=== PATIENT | male | born 1995 | race African-American/Black ===

== ENCOUNTER 2016-12-01 21:15 | Emergency (ER) | payer MEDICAID ==
[~2016-12-01] VITALS: Ht 180.3 cm; Wt 84.9 kg
[~2016-12-01 21:15] MED LIST: ARIP5TAB6 PO; DOCU-30 PO; FLUO20CA8 PO; LITHIUM PO; ZIPR20VI IM
[2016-12-01 22:22] LABS: DAU SCREEN DISCLAIMER
[2016-12-01 22:47] LABS: ASPARTATE AMINO TRANSFERASE 21 U/L (15-37); BLOOD UREA NITROGEN 10 mg/dL (7-18)
[2016-12-01 22:50] LABS: ACETAMINOPHEN < 2 mcg/mL (10-30)
[2016-12-02 02:23] VITALS: BP 123/87
== END 2016-12-02 02:25 | disposition home or self-care (01) ==
LOC: ED 22:25
DX: F25.0 Schizoaffective disorder, bipolar type (principal)
CPT/HCPCS: 36415; 80053; 80307; 80329; 81003; 85025; 99284; G0480

== ENCOUNTER 2016-12-30 18:26 | Emergency (ER) | payer MEDICAID ==
[~2016-12-30] VITALS: Ht 180.3 cm; Wt 80.1 kg
[2016-12-30 18:28] VITALS: BP 133/82
[2016-12-30] MEDS ORDERED: HYDROcodone/APAP 5/325 TABLET PO ONE (20:30)
[2016-12-30] MEDS ORDERED: HYDROcodone/APAP 5/325 TABLET ONE (20:34)
== END 2016-12-30 20:48 | disposition home or self-care (01) ==
LOC: ED 20:35
DX: Z76.0 Encounter for issue of repeat prescription (principal); F20.9 Schizophrenia, unspecified
CPT/HCPCS: 99283

== ENCOUNTER 2017-04-21 17:20 | Emergency (ER) | payer MEDICAID ==
[~2017-04-21] VITALS: Ht 180.3 cm; Wt 84.6 kg
[~2017-04-21 17:20] MED LIST changes: +ARIP5TAB13 PO; -ARIP5TAB6 PO; +DOCU-131 PO; -DOCU-30 PO
[2017-04-21] MEDS ORDERED: OXYcodone/APAP 10/325MG TABLET PO ONE (18:30)
[2017-04-21 18:31] VITALS: BP 121/70
== END 2017-04-21 18:34 | disposition home or self-care (01) ==
LOC: ED 17:45
DX: N48.89 Other specified disorders of penis (principal); Q55.64 Hidden penis
CPT/HCPCS: 99283